=== PATIENT | male | born 1995 | race Caucasian/White ===

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

== ENCOUNTER 2018-10-08 16:26 | Emergency (ER) | payer BC ==
[2018-10-08 16:58] VITALS: BP 148/94
--- NOTE | 2018-10-08 18:13 | UC ---
Complaint Male HPI - HPI Summary HPI Summary: 22-year-old male presents with concerns of discolored semen for the past week. States he noticed when he has had intercourse that the semen in the condom was a tannish brown color. States he is in a monogamous relationship with a long time female partner and consistently uses condoms. Denies fever, chills, abdominal pain, back or flank pain, rectal pain, dysuria, frequency, urgency, hematuria, hematospermia, penile discharge, penile lesions or ulcerations, testicular pain or swelling. - History of Current Complaint Chief Complaint: UCGU Stated Complaint: PERSONAL Time Seen by Provider: 10/08/18 17:17 Hx Obtained From: Patient Pain Intensity: 0 - Allergies/Home Medications Allergies/Adverse Reactions: Allergies Allergy/AdvReac Type Severity Reaction Status Date / Time adapalene Allergy Intermediate facial Verified 10/08/18 16:58 redness/skin PMH/Surg Hx/FS Hx/Imm Hx Previously Healthy: Yes - Denies significant PMH - Surgical History Surgical History: Yes Surgery Procedure, Year, and Place: bilateral inguinal hernias 1998 - Family History Known Family History: Positive: Cardiac Disease - GRAND FATH[place] AGE 68 Negative: Respiratory Disease - Social History Occupation: Student Lives: With Family Alcohol Use: Weekly Alcohol Amount: weekends Substance Use Type: None Smoking Status (MU): Never Smoked Tobacco Review of Systems All Other Systems Reviewed And Are Negative: Yes Constitutional: Negative: Fever, Chills Skin: Negative: Rash Respiratory: Positive: Negative Cardiovascular: Positive: Negative Gastrointestinal: Negative: Abdominal Pain, Vomiting, Diarrhea, Nausea Genitourinary: Negative: Dysuria, Hematuria, Frequency, Urgency, Vaginal/Penile Discharge, Ulceration/Lesion Musculoskeletal: Positive: Negative Neurological: Positive: Negative Is Patient Immunocompromised?: No Physical Exam - Summary Physical Exam Summary: GENERAL APPEARANCE: Well developed, well nourished, alert and cooperative, and appears to be in no acute distress. EYES: Conjunctiva clear. No drainage. EARS: External auditory canals and tympanic membranes clear, hearing grossly intact. NOSE: No nasal discharge. THROAT: Pharynx normal No tonsilar inflammation, swelling, exudate, or lesions. Uvula midline. Oral cavity normal. Teeth and gingiva in good general condition. NECK: Neck supple, non-tender without lymphadenopathy. CARDIAC: Normal S1 and S2. No S3, S4 or murmurs. Rhythm is regular. There is no peripheral edema, cyanosis or pallor. Extremities are warm and well perfused. Capillary refill is less than 2 seconds. Peripheral pulses intact. LUNGS: Clear to auscultation without rales, rhonchi, wheezing or diminished breath sounds. ABDOMEN: Positive bowel sounds. Soft, nondistended, nontender. No guarding or rebound. No masses or hepatosplenomegally. GENITOURINARY: Normal penis without lesions or ulcerations. Testicles smooth, non-tender without edema, nodules, or masses. No scrotal edema. MUSKULOSKELETAL: ROM intact to all extremities. No joint erythema or tenderness. Normal muscular development. Normal gait. SKIN: Skin normal color, texture and turgor with no lesions or eruptions. Triage Information Reviewed: Yes Vital Signs: Initial Vital Signs Temp 98.6 F 10/08/18 16:54 Pulse 79 10/08/18 16:54 Resp 12 10/08/18 16:54 BP 148/94 10/08/18 16:54 Pulse Ox 100 10/08/18 16:54 Vital Signs Reviewed: Yes Complaint Male Course/Dx - Course Course Of Treatment: 22-year-old male presents with concerns of discolored semen for the past week. States he noticed when he has had intercourse that the semen in the condom was a tannish brown color. States he is in a monogamous relationship with a long time female partner and consistently uses condoms. Denies fever, chills, abdominal pain, back or flank pain, rectal pain, dysuria, frequency, urgency, hematuria, hematospermia, penile discharge, penile lesions or ulcerations, testicular pain or swelling. Afebrile. Vital signs stable. Exam was overall unremarkable. [id number] urinalysis was normal. Urine culture is pending. I'm also sending the urine for screening for gonorrhea and chlamydia although I have low suspicion for either of these. I'm giving him referral to urology. He is to call first thing Thursday morning for an appointment. Anticipatory guidance and warning symptoms were reviewed with the patient. Verbalizes understanding and agrees with plan of care. - Differential Dx/Diagnosis Differential Diagnosis/HQI/PQRI: Epididymitis, Cancer, Prostatitis, Urinary Tract Infection, Other - hematospermia, melanospermia Provider Diagnosis: Discolored semen Discharge - Sign-Out/Discharge Documenting (check all that apply): Patient Departure All imaging exams completed and their final reports reviewed: No Studies - Discharge Plan Condition: Stable Disposition: HOME Referrals: No Primary Care Phys,NOPCP [Primary Care Provider] - Feng Trinh MD [Medical Doctor] - 5 Days (Call for appointment.) Additional Instructions: Discolored semen is often benign and resolves on its own. The most likely cause of this would be a urinary tract infection. The urine test performed in the clinic today showed no evidence of an infection. I am going to send a urine for culture as well as screen for gonorrhea and chlamydia which would be the most likely infectious cause of your symptoms. We will contact you if any of these are positive and would require a change in your plan of care. Follow-up with Dr. King, urology, for further evaluation. You will need to call Thursday morning to make an appointment. Seek immediate medical attention in the emergency room if you develop a fever greater than 100.5 F, have severe abdominal pain, severe back or flank pain, persistent or projectile vomiting, testicular pain or swelling, or any worsening of symptoms. - Billing Disposition and Condition Condition: STABLE Disposition: Home
[2018-10-11 13:39] LABS: Neisseria gonorrhoeae (GC) RNA Negative (Negative)
== END 2018-10-08 18:26 | disposition home or self-care (01) ==
LOC: UCCORT 16:26
DX: N50.89 Other specified disorders of the male genital organs (principal); Z88.8 Allergy status to other drugs, medicaments and biological substances
CPT/HCPCS: 81003; 87086; 87491; 87591; 99211; G0463

== ENCOUNTER 2019-02-06 14:25 | Emergency (ER) | payer BC ==
[2019-02-06 15:18] VITALS: BP 124/80
--- NOTE | 2019-02-06 15:39 | UC ---
Throat Pain/Nasal Geovanny HPI - HPI Summary HPI Summary: Pt is accompanied by mom. Pt states that he had sudden onset to sore throat that began ~ 5 days. ago. Pt states that the pain is worse in the morningis alleviated by taking OTC NSAIDS. Pt denies fever, chills nausea or vomiting, difficulty swallowing or breathing. - History of Current Complaint Chief Complaint: UCGeneralIllness Stated Complaint: THROAT COMPLAINT Time Seen by Provider: 02/06/19 15:20 Hx Obtained From: Patient Onset/Duration: Sudden Onset, Lasting Days, Still Present Severity: Moderate Pain Intensity: 5 Cough: None Associated Signs & Symptoms: Positive: Negative - Epiglottits Risk Factors Epiglottis Risk Factors: Negative - Allergies/Home Medications Allergies/Adverse Reactions: Allergies Allergy/AdvReac Type Severity Reaction Status Date / Time adapalene Allergy Intermediate facial Verified 02/06/19 15:19 redness/skin Home Medications: Home Medications Ibuprofen TAB* [Motrin TAB* 600 MG] 600 mg PO Q8H PRN 02/06/19 [History Confirmed 02/06/19] PMH/Surg Hx/FS Hx/Imm Hx Previously Healthy: Yes - Surgical History Surgical History: Yes Surgery Procedure, Year, and Place: bilateral inguinal hernias 1998 - Family History Known Family History: Positive: Cardiac Disease - GRAND FATHER [place] AGE 68 Negative: Respiratory Disease - Social History Occupation: Employed Full-time Lives: With Family Alcohol Use: Weekly Alcohol Amount: weekends Substance Use Type: None Smoking Status (MU): Never Smoked Tobacco Have You Smoked in the Last Year: No - Immunization History Vaccination Up to Date: Yes Review of Systems All Other Systems Reviewed And Are Negative: Yes Constitutional: Positive: Negative Skin: Positive: Negative Eyes: Positive: Negative ENT: Positive: Sore Throat Respiratory: Positive: Negative Cardiovascular: Positive: Negative Gastrointestinal: Positive: Negative Genitourinary: Positive: Negative Motor: Positive: Negative Neurovascular: Positive: Negative Musculoskeletal: Positive: Negative Neurological: Positive: Negative Psychological: Positive: Negative Is Patient Immunocompromised?: No Physical Exam Triage Information Reviewed: Yes Appearance: Well-Appearing Vital Signs: Initial Vital Signs Temp 98.6 F 02/06/19 15:15 Pulse 71 02/06/19 15:15 Resp 16 02/06/19 15:15 BP 124/80 02/06/19 15:15 Pulse Ox 100 02/06/19 15:15 Vital Signs Reviewed: Yes Eye Exam: Normal ENT: Positive: Tonsillar swelling Dental Exam: Normal Neck exam: Normal Respiratory Exam: Normal Cardiovascular Exam: Normal Musculoskeletal Exam: Normal Neurological Exam: Normal Psychological Exam: Normal Skin Exam: Normal Throat Pain/Nasal Course/Dx - Differential Dx/Diagnosis Differential Diagnosis/HQI/PQRI: Mononucleosis, Pharyngitis, Tonsillitis Provider Diagnosis: Sore throat (viral) Discharge ED - Sign-Out/Discharge Documenting (check all that apply): Patient Departure All imaging exams completed and their final reports reviewed: No Studies - Discharge Plan Condition: Stable Disposition: HOME Patient Education Materials: Pharyngitis (ED), Postnasal Drip (DC) Referrals: [facility] [place] [facility] [Outside] No Primary Care Phys,NOPCP [Primary Care Provider] - - Billing Disposition and Condition Condition: STABLE Disposition: Home
== END 2019-02-06 16:07 | disposition home or self-care (01) ==
LOC: UCCORT 14:25
DX: J02.8 Acute pharyngitis due to other specified organisms (principal); Z88.8 Allergy status to other drugs, medicaments and biological substances
CPT/HCPCS: 87651; 99211; G0463